=== PATIENT | female | born 1995 | race Caucasian/White ===

== ENCOUNTER 2022-07-20 08:28 | Emergency (ER) | payer OTHER, SELFPAY ==
--- NOTE | 2022-07-20 08:36 | ED.URI ---
HPI - URI/Sore Throat General Chief Complaint: Upper Respiratory Infection Stated Complaint: SORE THROAT/WHITE SPOTS Time Seen by Provider: 07/20/22 08:30 Source: patient and RN notes reviewed History of Present Illness HPI Narrative: Patient is a 26-year-old female who presents to the Urgent Care with complaints of sore throat and white spots. Patient thought that she had tonsil stones and tried to ?remove them? this morning. Patient states she did have a positive exposure to someone that she vacation with this past weekend who was also diagnosed today with strep. Patient woke up with the symptoms and currently denies any known fever, nausea or vomiting. No other acute complaints. No acute distress noted. Patient aware of the plan of care. Some parts of this dictation were generated by voice recognition software and may contain typographical and/or grammatical inaccuracies. Related Data Home Medications Medication Instructions Recorded Confirmed levothyroxine 25 mcg tablet 25 mcg PO DAILY 07/20/22 07/20/22 norethindrone acetate 1.5 1 tablet PO DAILY 07/20/22 07/20/22 mg-ethinyl estradiol 30 mcg tablet () Allergies Allergy/AdvReac Type Severity Reaction Status Date / Time No Known Allergies Allergy Verified 07/20/22 08:37 Review of Systems Review of Systems: CONSTITUTIONAL: Denies fever, chills, or sweats. EYES: Denies visual changes, redness, or discharge. ENT: Denies rhinorrhea, congestion, otalgia. Reports of sore throat and ?white spots CARDIOVASCULAR: Denies chest pain, palpitations, or edema. RESPIRATORY: Denies cough or dyspnea. GASTROINTESTINAL: Denies abdominal pain, nausea, vomiting, or diarrhea. GENITOURINARY: Denies dysuria or hematuria. SKIN: Denies rash or itching. MUSCULOSKELETAL: Denies back pain, joint pain, or myalgia. NEUROLOGIC: Denies headache, numbness, or weakness. All other systems reviewed are negative, except as documented in HPI. PMFSH Comments At the time of my signature, I reviewed and agree with the nursing past medical, surgical, social, and family history. There is no relevant family history pertinent to the patient complaint. Exam Narrative: GENERAL: This is a well-nourished, well-developed patient, in no apparent distress. HEAD: normocephalic, atraumatic. EYES: PERRL. Sclera clear/white. Vision is grossly intact. EARS: External ears normal, auditory canals clear and without drainage, TMs normal without perforation. Hearing grossly intact. NOSE: External nose normal with no obvious nasal discharge, nares without redness, no rhinorrhea. THROAT: Mucous membranes moist, moderate erythema to posterior pharynx with bilateral exudate. Mild postnasal drainage. NECK: Neck supple, non-tender mild left submandibular lymphadenopathy CARDIOVASCULAR: Regular rate and rhythm without murmurs, gallops, or rubs. RESPIRATORY: Clear to auscultation. Breath sounds equal bilaterally. No wheezes, rales, or rhonchi. SKIN: warm, intact with no suspicious lesions or rash, good texture and turgor. NEURO: awake, alert, and oriented to person, place and time. There were no obvious focal neurologic abnormalities. EXTREMITIES: No clubbing, cyanosis, or edema. Course Course Level of Care: Express Care Visit Vital Signs Vital signs: Vital Signs Temperature 98.9 F 07/20/22 08:41 Pulse Rate 73 07/20/22 08:41 Respiratory Rate 16 07/20/22 08:41 Blood Pressure 123/85 07/20/22 08:41 Pulse Oximetry 99 07/20/22 08:41 Temperature 98.9 F 07/20/22 08:41 Pulse Rate 73 07/20/22 08:41 Respiratory Rate 16 07/20/22 08:41 Blood Pressure 123/85 07/20/22 08:41 Pulse Oximetry 99 07/20/22 08:41 Reviewed MDM - URI/Sore Throat MDM Narrative Medical decision making narrative: Reviewed lab results with the patient. She is aware strep swab was positive. Advised patient to complete your regimen prescribed. Be sure to eat drink medication. You are considered contagious
[2022-07-20 08:41] VITALS: BP 123/85; PULSE 73; RESP 16; TEMP 37.2; O2SAT 99
== END 2022-07-20 09:02 | disposition home or self-care (01) ==
PROVIDERS: Emergency Provider Nurse Practitioner Family
DX: J02.0 Streptococcal pharyngitis (principal); E03.9 Hypothyroidism, unspecified
CPT/HCPCS: 87880; 99203; G0463